=== PATIENT | female | born 1970 | race African-American/Black ===

== ENCOUNTER 2017-09-06 11:25 | Emergency (ER) | payer MEDICARE, MEDICAID ==
[~2017-09-06] VITALS: Ht 142.2 cm; Wt 57.1 kg
[~2017-09-06 11:25] MED LIST: ANTI-GAS40 MG/0.6 PO; BENADRYL25 MG PO; BENZTROPINE ME0.5 MG PO; CATAPRES; CENTRUM; CLARITIN5 MG/5 ML PO; CLONIDINE0.1; DEPO-PROVERA; DIAZEPAM 10 MG10 M1 RECTAL; DILANTIN-1125 MG/5 M PO; FIBERSOURCE HN250 ML PO; FORTICAL; FORTICAL1 SPRAY NASAL; HYDROCHLOROTH12.5 M1 PO; IBUPROFEN 400400 M1 PO; IBUPROFEN 400400 M2 PO; IMODIUM; KEPPRA 100100 MG/M1 PO; LOPERAMIDE2 MG PO; LORATIDINE 10 M10 M1; MEDROXYPROGESTERONE IM; MOM; MOM PO; MVI PO; MYLICON DR40 MG/0.1; OSCAL; PETROLEUM JELL368 GM; PRINIVIL20 MG; REGLAN 5 MG TAB5 M1 GT; REGLAN 5 MG TAB5 MG; ROBITUSSIN DM118 ML PO; TRANSDERM-SCO1 PATC1 TD; TRANSDERM-SCO1 PATC1 TOP; TUMS PER TUBE; TUSSIN CHE100 MG/5 M PO; TYLENOL; TYLENOL325 MG PO; VIMPAT10 MG/1 ML; VIMPAT10 MG/1 ML PO; VIT D PER TUBE; ZESTRIL20 MG PO
[2017-09-06 12:27] LABS: ABSOLUTE LYMPHOCYTES 1.8 thou/uL (0.8-5.3); ABSOLUTE MONOCYTES 0.5 thou/uL (0.0-1.2); ABSOLUTE NEUTROPHILS 6.9 thou/uL (1.6-8.1); BASOPHILS 0.5 %; HEMATOCRIT 36.8 % (37.0-47.0); HEMOGLOBIN 12.5 gm/dL (12.0-15.0); LYMPHOCYTES 19.9 %; MCH 31.4 pg (26.0-34.0); MCHC 34.1 g/dL (28.0-37.0); MCV 92.1 fL (80.0-100.0); MONOCYTES 5.6 %; NUCLEATED RBCS 0 /100WBC; PLATELET COUNT* 268 thou/uL (150-400); RDW-CV 12.8 % (10.5-14.5); WBC 9.3 thou/uL (4.0-11.0)
[2017-09-06 12:33] LABS: CALCIUM 9.7 mg/dL (8.5-10.1); CREATININE 0.9 mg/dL (0.6-1.3); POTASSIUM 3.6 mmol/L (3.5-5.1)
[2017-09-06 12:37] LABS: ALBUMIN 3.9 g/dL (3.4-5.0); TOTAL BILIRUBIN 0.2 mg/dL (<0.1-1.0); TOTAL PROTEIN 8.5 g/dL (6.4-8.2)
[2017-09-06] MEDS ORDERED: PROTONIX 20 MG20 M1 PER TUBE (14:14)
[2017-09-06] MEDS ORDERED: PEPCID20 MG PER TUBE (14:14)
[2017-09-06 14:37] VITALS: BP 119/74
== END 2017-09-06 14:41 | disposition home or self-care (01) ==
LOC: M.ERS 11:25
PROVIDERS: Physician Assistant
DX: R11.10 Vomiting, unspecified (principal); I10 Essential (primary) hypertension; K21.9 Gastro-esophageal reflux disease without esophagitis

== ENCOUNTER 2017-12-29 09:10 | Emergency (ER) | payer MEDICARE, MEDICAID ==
[~2017-12-29] VITALS: Ht 124.5 cm; Wt 44.9 kg
[~2017-12-29 09:10] MED LIST changes: +PEPCID20 MG PER TUBE; +PROTONIX 20 MG20 M1 PER TUBE
[2017-12-29 09:15] VITALS: BP 99/70
== END 2017-12-29 09:52 | disposition home or self-care (01) ==
LOC: M.ERS 09:10
DX: Z43.1 Encounter for attention to gastrostomy (principal); K21.9 Gastro-esophageal reflux disease without esophagitis; I10 Essential (primary) hypertension

== ENCOUNTER 2018-01-30 11:57 | Emergency (ER) | payer MEDICARE, MEDICAID ==
[~2018-01-30] VITALS: Ht 144.8 cm; Wt 48.5 kg
[2018-01-30] MEDS ORDERED: LEVOCETIRI2.5 MG/5 M PO (12:17)
[2018-01-30] MEDS ORDERED: MURINE EAR DROP15 ML OTIC (12:18)
[2018-01-30 13:48] VITALS: BP 120/72
== END 2018-01-30 13:49 | disposition home or self-care (01) ==
LOC: M.ERS 11:57
DX: Z43.1 Encounter for attention to gastrostomy (principal); K21.9 Gastro-esophageal reflux disease without esophagitis; I10 Essential (primary) hypertension; Z79.899 Other long term (current) drug therapy

== ENCOUNTER 2018-02-01 15:39 | Emergency (ER) | payer MEDICARE, MEDICAID ==
[~2018-02-01] VITALS: Ht 144.8 cm; Wt 52.2 kg
[~2018-02-01 15:39] MED LIST changes: +LEVOCETIRI2.5 MG/5 M PO; +MURINE EAR DROP15 ML OTIC
[2018-02-01] MEDS ORDERED: ALBUTEROL2.5 MG/0.5 INH (16:13)
[2018-02-01 16:37] VITALS: BP 132/95
== END 2018-02-01 16:51 | disposition home or self-care (01) ==
LOC: M.ERS 15:39
DX: J40 Bronchitis, not specified as acute or chronic (principal); K21.9 Gastro-esophageal reflux disease without esophagitis; I10 Essential (primary) hypertension

== ENCOUNTER 2018-06-09 10:02 | Emergency (ER) | payer MEDICARE, MEDICAID ==
[~2018-06-09] VITALS: Ht 152.4 cm; Wt 48.9 kg
--- NOTE | ~2018-06-09 | EKG ---
[place] [address] ELECTROCARDIOGRAM REPORT Name: BOBBY HERNANDES Room: [facility]#: [id number] Admission: 06/09/18 Attend Phys: Discharge: 06/09/18 Date of : 68 Report #: [id number] THIS REPORT FOR: //name// [facility] ED Test Date: 2018-06-10 Test Time: 19:32:02 Pat Name: BOBBY HERNANDES Department: Room: 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
[~2018-06-09 10:02] MED LIST changes: +ALBUTEROL2.5 MG/0.5 INH
[2018-06-09 12:39] VITALS: BP 118/65
== END 2018-06-09 12:40 | disposition home or self-care (01) ==
LOC: M.ERS 10:02
DX: K94.23 Gastrostomy malfunction (principal); K21.9 Gastro-esophageal reflux disease without esophagitis; I10 Essential (primary) hypertension

== ENCOUNTER 2018-06-10 17:45 | Inpatient (IN) | payer MEDICARE, MEDICAID ==
[~2018-06-10] VITALS: Ht 134.6 cm; Wt 48.5 kg
[~2018-06-10 17:45] MED LIST changes: +MILK OF MA2400 MG/10 PO; -MOM PO; -PETROLEUM JELL368 GM; +PETROLEUM JELL368 GM TOP; -PRINIVIL20 MG; +PRINIVIL20 MG PO; -REGLAN 5 MG TAB5 MG; +REGLAN 5 MG TAB5 MG PO
[2018-06-10 17:48] VITALS: BP 98/63
--- NOTE | 2018-06-10 18:05 | NUR ---
CONSENT OBTAINED FOR TREATMENT BY SHERRIE BEY.
[2018-06-10 19:17] LABS: URINE BILIRUBIN NEGATIVE (Negative); URINE BLOOD TRACE (Negative); URINE CLARITY CLEAR; URINE COLOR YELLOW; URINE GLUCOSE-RANDOM NEGATIVE (Negative); URINE KETONES NEGATIVE (Negative); URINE LEUKOCYTES-REFLEX NEGATIVE (Negative); URINE NITRITE-REFLEX NEGATIVE (Negative); URINE PROTEIN 1+ (Negative); URINE UROBILINOGEN 0.2 E.U./dl (0.2-1.0)
[2018-06-10 19:54] LABS: HEMATOCRIT 30.6 % (37.0-47.0); HEMOGLOBIN 10.4 gm/dL (12.0-15.0); MPV 6.7 fl. (7.2-11.1); RDW-CV 13.5 % (10.5-14.5)
[2018-06-10 19:56] LABS: ABSOLUTE LYMPHOCYTES 2.8 thou/uL (0.8-5.3); ABSOLUTE MONOCYTES 0.8 thou/uL (0.0-1.2); ABSOLUTE NEUTROPHILS 5.4 thou/uL (1.6-8.1); BASOPHILS 0.5 %; LYMPHOCYTES 31.3 %; MCH 31.1 pg (26.0-34.0); MCV 91.7 fL (80.0-100.0); MONOCYTES 8.7 %; NUCLEATED RBCS 0 /100WBC; PLATELET COUNT* 406 thou/uL (150-400); POLYS 59.5 %; RBC 3.34 mil/uL (4.20-5.00)
[2018-06-10 20:20] LABS: CALCIUM 11.9 mg/dL (8.5-10.1); CREATININE 1.2 mg/dL (0.6-1.3); POTASSIUM 3.3 mmol/L (3.5-5.1)
[2018-06-10 20:24] LABS: ALBUMIN 3.5 g/dL (3.4-5.0); TOTAL BILIRUBIN 0.3 mg/dL (<0.1-1.0); TOTAL PROTEIN 8.7 g/dL (6.4-8.2)
[2018-06-10 21:16] VITALS: BP 148/96
[2018-06-10 21:30] VITALS: BP 148/96
--- NOTE | 2018-06-11 05:21 | NUR ---
PATIENT ARRIVED ON UNIT AT APPROX 1930. POLICY CHANGE CLERK HERE TO ANSWER QUESTIONS AND SIGN CONSENTS. PATIENT IS NON-VERBAL. IV FLUIDS STARTED, INCLUDING ER ORDER OF WIDE OPEN SALINE THE ER ESTABLISHED IV ACCESS JUST PRIOR TO BRINGING PATIENT UP. ER PHYSICIAN ORDERED STRICT NPO, INCLUDING PEG TUBE THIS IS NOT FUNCTIONING PROPERLY AT THIS TIME. ABDOMINAL BINDER IN PLACE TO KEEP PATIET FROM PLAYING WITH TUBE. NO SKIN ISSUES NOTED. FRIED CATH IN PLACE AND DRAINING WELL. HOURLY ROUNDING AND PRODUCTION COORDINATOR COMLETED DOCUMENTED
[2018-06-11 07:45] VITALS: BP 108/65
--- NOTE | 2018-06-11 10:58 | NUR ---
SW called pt caregiver and spoke with Zahra to complete initial assessment, introduce self, and SW role. Zahra explained that pt has a guardian of the state and has [facility] [place]. [phone] (Zahra had already called to inform PA of pt admission to the hospital). Pt has a support CM named Anny, . Pt was in an ISL but is now in a prison and Zahra is with the caregiver agency who recently signed on to provide care for pt. Pt receives 24/ care, nurses check on pt hourly and reposition pt every 2 hrs. Pt has hx of siezures and hypertension. Pt responds well to calm voice but only with grunts or moans. Pt is NPO, tube feedings with abdominal binder to try to help hold in place. Pt has greg lift or needs 2 person assist to transfer, wc as is wc bound, hospital bed, briefs. Possible for Zahra to be able to provide pt ride home if needed; Zahra said she could be called at dc or whenever needed. [phone] or [phone]. SW to continue to follow to assist with safe dc planning.
[2018-06-11 11:30] VITALS: BP 105/64
--- NOTE | 2018-06-11 15:27 | NUR ---
Pt was brought down to PACU to assist Dr. Quezada with C-line placement. Consent was obtained by public administrators office. Consent given by Shree Choi RN with athority from Sybil Staley. Numbers to reach Shree are [phone] cell. After hours emergency # to pg Public commercial administrator [phone]. Courthouse #[phone], Sybil Staley [place] [phone]. Placement went well, 1st x-ray showed to adjust placement. 2nd xray after adjustment showed good placement and Dr. Quezada approved use of line. Called Michelle and report given. Patient taken over to CT for radiology exams. Shree requested call when patient is discharged.
[2018-06-11 15:42] VITALS: BP 110/66
--- NOTE | 2018-06-11 16:54 | NUR ---
VSS-AFEBRILE. LUMGS CLEAR/DIMINISHED IN BILATERAL BASES. NPO AND NO PEG USE UNTIL AFTER PEG IS REPAIRED ON 06/12/18. INCONTINENT OF TWO BM THIS SHIFT, FRIED DRAINING ADEQUATE AMOUNT OF CLEAR YE,LOW URINE TO DEPENDENT DRAINAGE. ORAL CARE AND TURNS EVERY TWO HOURS FOR COMFORT. PEG TUBE SITE CLEANSED AND DRESSING CHANGED.
--- NOTE | 2018-06-11 17:15 | NUR ---
ASSUMED CARE OF PATIENT AT THIS TIME. REPORT RECEIVED FROM KALEB ZAMBRANO. PATIENT RESTING IN BED. SITTER AT BEDSIDE. NO NEEDS AT THIS TIME. WILL CONTINUE TO MONITOR.
[2018-06-11 21:15] LABS: HEMATOCRIT 23.5 % (37.0-47.0); MCH 31.9 pg (26.0-34.0); MCHC 34.5 g/dL (28.0-37.0); MCV 92.5 fL (80.0-100.0); MPV 6.4 fl. (7.2-11.1); RBC 2.54 mil/uL (4.20-5.00); RDW-CV 13.4 % (10.5-14.5); WBC 9.6 thou/uL (4.0-11.0)
[2018-06-11 21:29] LABS: ANION GAP < 0 mmol/L (7-16); BUN 19 mg/dL (7-18); CHLORIDE 106 mmol/L (98-107); CO2 31 mmol/L (21-32); CREATININE 0.9 mg/dL (0.6-1.3); GLUCOSE 92 mg/dL (70-99); POTASSIUM 3.1 mmol/L (3.5-5.1); SODIUM 135 mmol/L (136-145)
[2018-06-11 21:31] LABS: HEMOGLOBIN 8.1 gm/dL (12.0-15.0)
[2018-06-11 21:32] LABS: CALCIUM 9.5 mg/dL (8.5-10.1)
[2018-06-12 00:30] VITALS: BP 105/48
--- NOTE | 2018-06-12 05:00 | NUR ---
PATIENT NONVERBAL AND NONRESPONSIVE. PT CONTRACTED BUT IS ABLE TO SOMEWHAT MOVE UPPER EXTREMITIES. PT WITH GAUZE OVER OPENING WHERE PEG TUBE WAS PULLED OUT. SKIN AROUND PEG TUBE OPENING WITH BREAKDOWN; BARRIER CREAM APPLIED. PT HAS TRIPLE LUMAN RT IJ; ANTIBIOTICS/FLUIDS INFUSING PER DR ORDER. PT WITH FRIED TO DEPENDENT DRAIN WITH YELLOW URINE. PT TURNED Q2H PER PROTOCAL. PT HAS SCD'S AND PROVO BOOTS IN PLACE. PT DOES NOT APPEAR TO BE IN PAIN. PT HAS 1:1 SITTER TO PREVENT PULLING AT LINES. FREQUENTLY USED ITEMS AND CALL LIGHT WITHIN REACH. WILL CONTINUE TO MONITOR.
[2018-06-12 06:16] LABS: HEMATOCRIT 22.7 % (37.0-47.0); HEMOGLOBIN 7.7 gm/dL (12.0-15.0); MCH 31.8 pg (26.0-34.0); MCHC 34.1 g/dL (28.0-37.0); MCV 93.2 fL (80.0-100.0); MPV 6.4 fl. (7.2-11.1); RBC 2.44 mil/uL (4.20-5.00); RDW-CV 13.3 % (10.5-14.5); WBC 8.8 thou/uL (4.0-11.0)
[2018-06-12 07:35] LABS: ALBUMIN 2.6 g/dL (3.4-5.0); CALCIUM 9.2 mg/dL (8.5-10.1); CREATININE 0.9 mg/dL (0.6-1.3); MAGNESIUM 1.8 mg/dL (1.8-2.4); POTASSIUM 3.3 mmol/L (3.5-5.1); TOTAL BILIRUBIN 0.2 mg/dL (<0.1-1.0)
[2018-06-12 08:05] VITALS: BP 104/52
[2018-06-12 09:35] VITALS: BP 190/51
--- NOTE | 2018-06-12 10:23 | CON ---
[address] [address] CONSULTATION Name: INDIRA HERNANDESLO Martha Room: [address] IN .R.#: [id number] Admission: 06/10/18 Attend Phys: Lillie Barron MD Discharge: Date of : 68 Report #: [id number] THIS REPORT FOR: //name// CC: [facility] physician/PCP Lillie Barron DATE OF SERVICE: 06/11/2018 ATTENDING PHYSICIAN: Dr. Barron. REASON FOR EVALUATION: Positive blood culture. HISTORY OF PRESENT ILLNESS: Chart reviewed, the patient examined. This is a 47-year-old woman with severe disability both physical as well as mental who essentially is in a nonresponsive state and receives enteral feedings per PEG tube. She does apparently at times pull at it and then it was felt to have been dislodged. She was transferred for evaluation and was confirmed. Noted there were some significant inflammation around the margins to suggest some leaking. As part of the evaluation, blood cultures were collected 1/2 with growth of gram-positive cocci at this point. She is unable to give any history. She did have a PICC line in place. GI to evaluate to see if it is a correctable problem or if it will return to function. She has been started empirically on ceftriaxone and vancomycin. ALLERGIES: None known. CURRENT MEDICATIONS: Include vancomycin, ceftriaxone, loratadine, cholecalciferol, hydrochlorothiazide, lisinopril, metoclopramide, benztropine, lacosamide, levetiracetam, albuterol, loperamide and guaifenesin. PAST MEDICAL HISTORY: As noted above, cerebral palsy, history of seizures, profound disability, history of reflux, hypertension and osteoporosis. SOCIAL HISTORY: Nonsmoker and no ethanol. FAMILY HISTORY: Noncontributory. REVIEW OF SYSTEMS: Not obtainable. PHYSICAL EXAMINATION: GENERAL: She has purposeful response to voice. She does repeatedly put the head of the right hand to her forehead, which apparently is one of her habitual actions. HEENT: Abnormal external ears. Microcephalic. Eyes are closed. VITAL SIGNS: Temperature 97.8, pulse 77, respirations 16 and blood pressure 110/66[place] [address] CONSULTATION Name: BOBBY HERNANDES Room: [address]#: [id number] Admission: 06/10/18 Attend Phys: Lillie Barron MD Discharge: Date of : 68 Report #: [id number] SKIN: Appears to be in generally good condition. HEART: Regular. I do not appreciate a murmur. LUNGS: Clear to auscultation. ABDOMEN: Mildly distended. The PEG tube has evidence of moderate inflammation at the margins. There is some exudate to distal lower extremities, has club foot. LABORATORY AND X-RAY DATA: Chest x-ray showed no pneumothorax or effusion. Low lung volumes. Blood culture 1 out of 2 with growth of gram-positive cocci, waiting ID susceptibility as required. Electrolytes: Sodium 136, potassium 3.3, chloride 97, bicarbonate is 34, BUN and creatinine 31 and 1.2, anion gap of 5, glucose of 104. LFTs unremarkable with exception of alkaline phosphatase elevated at 130. Calcium is 11.9. Albumin of 3.5. Total protein is 8.7. Lactic acid 1.8. CPK of 733. CBC: White count 9.0, H and H 10.4 and 38.6, platelets of 406. Urinalysis is unremarkable. ASSESSMENT: Gram-positive cocci isolated from single blood culture out of 2 sets were drawn. We will continue empiric therapy, certainly has risk factors. We will await ID and susceptibility testing. Certainly may have a secondary skin and soft tissue infection at the PEG site or more of a chemical dermatitis or perhaps a combination. We will await GI's recommendations. Continue wound care and protect with zinc paste in the interim for skin protection. We will monitor expectantly. <ELECTRONICALLY SIGNED> By: Scottie Stokes MD 06/12/18 1023 1623 [id number] Stokes MD /nt
--- NOTE | 2018-06-12 15:03 | NUR ---
WOUND CARE NOTE: CONSULT RECEIVED FOR CELLULITIS. PATIENT HAD A NEW G-TUBE PLACED TODAY. DIFFICULT TO ASSESS UNDERNEATH TUBE AT THIS TIME, BUT APPEARS TO HAVE SOME MACERATION. DID NOT VISUALIZE ANY REDNESS, BUT COULD HAVE BEEN OCCLUDED BY THE TUBE AND GAUZE DRESSING. ZINC BARRIER OINTMENT HAS BEEN BEING USED TO THE SITE, WOULD RECOMMEND CONTINUING IF NEEDED. MOST LIKELY THE ISSUE WILL RESOLVE NOW THAT GASTRIC CONTENTS WILL NOT BE DRAINING AND CAUSING IRRITATION TO THE SKIN. RECOMMEND CONTINUE USING Z-GUARD NOTIFY WOUND RN IF PROBLEM GETS WORSE. WILL SIGN OFF AT THIS TIME, PLEASE RECONSULT IF NEEDED.
--- NOTE | 2018-06-12 15:42 | EKG ---
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[employer]: : 1970 Requested By: Nikko Lheman Order Number: [id number] Jimena MD: Gorge Vogel Measurements Intervals [place] Rate: 73 P: 21 MD: 141 QRS: 84 QRSD: 86 T: 56 QT: 386 QTc: 426 Interpretive Statements Sinus rhythm Consider RVH or posterior infarct Baseline wander in lead(s) III Compared to ECG 06/10/2018 19:32:02 No significant changes Electronically Signed On 06-12-2018 15:41:57 LOOPING MACHINE OPERATOR by Gorge Vogel [email or web address] <ELECTRONICALLY SIGNED> By: Gorge Vogel MD, [facility] 06/12/18 1541 1029 1029 Gorge Vogel MD, [facility] /EPI
[2018-06-12 17:05] VITALS: BP 104/74
--- NOTE | 2018-06-12 19:49 | NUR ---
PATIENT RESTING IN BED. SITTER AT BEDSIDE. PATIENT IS NONVERBAL. PATIENT WENT FOR PEG TUBE PLACEMENT THIS MORNIGN WITHOUT INCIDENT. PEG TUBE FEEDING RESUMED AND WAS GIVEN. PATIENT VOMITED SHORTLY AFTER ADMINISTRATION, DR BLANKENSHIP NOTIFIED AND ORDERS RECIEVED. PATIENT HAS HAD 3 BOWEL MOVEMENTS TODAY. PATIENT HAS BEEN REPOSITIONED WHILE IN BED. PATIENT IS NPO. WILL CONTINUE TO MONITOR.
[2018-06-12 23:17] VITALS: BP 126/69
[2018-06-13 04:00] VITALS: BP 124/59
--- NOTE | 2018-06-13 05:19 | NUR ---
PT NONVERBAL, SLEEPING THIS SHIFT. OCC HITS HEAD WITH LEFT HAND. MEDS GIVEN AT HS THROUGHT G TUBE WITHOUT DIFFICULTY. ABD BINDER IN PLACE COVERING TUBE. NO EMESIS THIS SHIFT. HOB ELEVATED. SITTER AT BEDSIDE TO PROTECT LINES. R IJ SL, ABX GIVEN ORDERED. NO BM THIS SHIFT. PT TURNED AND REPOSITIONED Q2 HOURS AND PRN FOR SKIN CARE AND COMFORT. SCDS BLE. FRIED DRAINING YELLOW URINE. TO HAVE ABD XRAY TODAY AND AM LABS. NPO.
[2018-06-13 06:55] LABS: HEMOGLOBIN 7.2 gm/dL (12.0-15.0); MCH 32.1 pg (26.0-34.0); MCHC 34.1 g/dL (28.0-37.0); MCV 94.1 fL (80.0-100.0); MPV 7.4 fl. (7.2-11.1); RBC 2.23 mil/uL (4.20-5.00); RDW-CV 13.7 % (10.5-14.5); WBC 6.9 thou/uL (4.0-11.0)
[2018-06-13 07:09] LABS: ALBUMIN 2.5 g/dL (3.4-5.0); CALCIUM 8.6 mg/dL (8.5-10.1); CREATININE 0.8 mg/dL (0.6-1.3); MAGNESIUM 1.6 mg/dL (1.8-2.4); TOTAL BILIRUBIN 0.2 mg/dL (<0.1-1.0); TOTAL PROTEIN 6.2 g/dL (6.4-8.2)
[2018-06-13 07:10] LABS: POTASSIUM 2.8 mmol/L (3.5-5.1)
[2018-06-13 07:55] VITALS: BP 114/60
--- NOTE | 2018-06-13 12:53 | NUR ---
Nutrition: Currently on Jevity 1.5 @ 40mL/hr. Bolus feeds are desired. RECOMMEND JEVITY 1.5 1 CARTON QID, MEETING 100% OF NEEDS. WATER BOLUS: 90mL BEFORE AND AFTER EACH TF BOLUS. See RD Assessment form for details.
--- NOTE | 2018-06-13 13:14 | 2DMMODE ---
[place] [address] 2 D/M-MODE ECHOCARDIOGRAM Name: HERNANDESBOBBY Room: [address] IN [facility]#: [id number] Admission: 06/10/18 Attend Phys: Lillie Barron, Discharge: Date of : 68 Date of Service: 06/13/18 1314 Report #: [id number] THIS REPORT FOR: //name// APPROVED REPORT Study performed: 06/13/2018 10:07:25 EXAM: Comprehensive 2D, Doppler, and color-flow Echocardiogram Patient Location: In-Patient Room #: [facility] Status: routine BSA: 1.31 HR: 61 bpm BP: 114/60 mmHg Rhythm: NSR Other Information Study Quality: Good Indications bacteremia 2D Dimensions IVSd: 8.16 (7-11mm) LVOT Diam: 16.54 (18-24mm) LVDd: 29.24 mm PWd: 7.38 (7-11mm) Ascending Ao: 21.97 (22-36mm) LVDs: 19.66 (25-40mm) Aortic Root: 25.33 mm Volumes Left Atrial Volume (Systole) LA ESV Index: 20.00 mL/m2 Aortic Valve AoV Peak Jignesh.: 1.20 m/s AO Peak Gr.: 5.74 mmHg LVOT Max P.44 mmHg AO Mean Gr.: 3.09 mmHg LVOT Mean P.90 mmHg LVOT Max V: 1.05 m/s AO V2 VTI: 25.17 cm LVOT Mean V: 0.62 m/s TAB (VTI): 2.03 cm2 LVOT V1 VTI: 23.78 cm Mitral Valve E/A Ratio: 2.25 MV Decel. Time: 149.34 ms MV E Max Jignesh.: 1.20 m/[place] [address] 2 D/M-MODE ECHOCARDIOGRAM Name: HERNANDESBOBBY Room: [address] IN ..#: [id number] Admission: 06/10/18 Attend Phys: Lillie Barron, Discharge: Date of : 68 Date of Service: 06/13/18 1314 Report #: [id number] MV PHT: 43.31 ms MVA (PHT): 5.08 cm2 TDI E/Lateral E': 10.00 E/Medial E': 10.00 Medial E' Jignesh.: 0.12 m/s Lateral E' Jignesh.: 0.12 m/s Pulmonary Valve PV Peak Jignesh.: 0.76 m/s PV Peak Gr.: 2.30 mmHg Tricuspid Valve RAP Estimate: 5.00 mmHg TR Peak Gr.: 25.98 mmHg RVSP: 31.00 mmHg PA Pressure: 31.00 mmHg Left Ventricle The left ventricle is normal size. There is normal LV segmental wall motion. There is normal left ventricular wall thickness. Left ventricular systolic function is normal. The left ventricular ejection fraction is within the normal range. LVEF is 60-65%. The left ventricular diastolic function is normal. Right Ventricle The right ventricle is normal size. The right ventricular systolic function is normal. Atria The left atrium size is normal. The right atrium size is normal. Aortic Valve The aortic valve is normal in structure. No aortic regurgitation is present. There is no aortic valvular stenosis. Mitral Valve The mitral valve is normal in structure. Mild mitral regurgitation. No evidence of mitral valve stenosis. Tricuspid Valve The tricuspid valve is normal in structure. Mild tricuspid regurgitation. Mild pulmonary hypertension. Pulmonic Valve The pulmonary valve is normal in structure. Trace pulmonic [place] [address] 2 D/M-MODE ECHOCARDIOGRAM Name: BOBBY HERNANDES Room: [address] IN [facility]#: [id number] Admission: 06/10/18 Attend Phys: Lillie Barron, Discharge: Date of : 68 Date of Service: 06/13/18 1314 Report #: [id number] Great Vessels The aortic root is normal in size. IVC is not well visualized. Pericardium There is no pericardial effusion. <Conclusion> LVEF is 60-65%. There is normal LV segmental wall motion. There is no aortic valvular stenosis. No aortic regurgitation is present. Mild mitral regurgitation. Mild tricuspid regurgitation. Mild pulmonary hypertension. <ELECTRONICALLY SIGNED> By: Javon Cote MD, FACC 06/13/18 1314 1314 1314 Javon Cote MD, FACC /INF
--- NOTE | 2018-06-13 17:57 | NUR ---
PATIENT STARTED PEG TUBE FEEDINGS VIA CONTINUOUS INFUSION, TOLERATING A RATE OF 20ML/HR. PATIENT DID NOT VOMIT TODAY. CURRENTLY RESTING IN BED, SIDE RAILS UP X4, SITTER IN THE ROOM, WILL CONTINUE TO MONITOR.
--- NOTE | 2018-06-13 18:02 | NUR ---
REVIEWED AND AGREE WITH CHARTING BY STACY ALMARAZ.
[2018-06-13 21:37] VITALS: BP 108/67
[2018-06-14 04:13] LABS: HEMOGLOBIN 7.4 gm/dL (12.0-15.0); MCH 31.9 pg (26.0-34.0); MCHC 33.6 g/dL (28.0-37.0); MCV 94.7 fL (80.0-100.0); RBC 2.32 mil/uL (4.20-5.00); RDW-CV 13.7 % (10.5-14.5); WBC 7.6 thou/uL (4.0-11.0)
[2018-06-14 04:29] LABS: ALBUMIN 2.3 g/dL (3.4-5.0); CALCIUM 8.4 mg/dL (8.5-10.1); MAGNESIUM 2.3 mg/dL (1.8-2.4); TOTAL BILIRUBIN 0.2 mg/dL (<0.1-1.0)
[2018-06-14 04:50] LABS: POTASSIUM 3.9 mmol/L (3.5-5.1)
--- NOTE | 2018-06-14 08:05 | NUR ---
PT IS ABLE TO COMMUNICATE HER NEEDS TO STAFF WITH SIGNIFICANT DIFFICULTY; SHE IS NON-VERBAL AND HAS COGNITIVE DELAY. SHE DOES SEEM TO BECOME MORE AGGITATED WHEN UNCOMFORTABLE OR IN PAIN. REPOSITIONING AND MEDICATIONS HAVE BEEN ADEQUATE FOR CONTROLLING HER PAIN UP TO THIS TIME. PEG TUBE IS PATENT. FRIED IS ALSO PATENT. NPO MAINTAINED. 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 HOB AT 30 DEGREES+ WHILE TUBE FEEDING IS RUNNING.
[2018-06-14 09:45] VITALS: BP 118/78
[2018-06-14 16:39] VITALS: BP 101/65
--- NOTE | 2018-06-14 17:49 | NUR ---
ASSUMED CARE OF PT AT 0700. PT HAS SITTER PRESENT 24/ D/T PT PULLING ON IJ THAT WAS PLACED. VS STABLE AND WNL FOR PT, FARIHA IS PATENT AND DRIANING. IJ TRIPLE LUMEN EACH PORT FLUSHED. PT CALM THROUGH THIS SHIFT, Q2 TURNS MAINTAINED. HOURLY ROUNDING MAINTAINED. WILL CONT TO MONITOR.
[2018-06-14 21:45] VITALS: BP 124/81
--- NOTE | 2018-06-14 22:50 | CON ---
[facility] [address] [place] [address] CONSULTATION Name: BOBBY HERNANDES Room: [address] IN .R.#: [id number] Admission: 06/10/18 Attend Phys: Lillie Barron MD Discharge: Date of : 68 Report #: [id number] THIS REPORT FOR: //name// CC: [facility] physician/PCP Lillie Barron DATE OF SERVICE: 06/11/2018 REFERRING PHYSICIAN: Lillie Barron MD REASON FOR CONSULTATION: Problems with her gastrostomy tube. IMPRESSION: 1. Issues with PEG tube leakage secondary to poor fitting of the same. 2. Behavioral disorder with associated cognitive dysfunction making it difficult for the patient not to keep pulling out her feeding tube. 3. 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 4. History of seizure disorder. RECOMMENDATIONS: 1. I think that the patient would benefit from having a different feeding tube placed at this time. The balloon replacement tube does not appear to be fitting all that well and for this reason I would like to proceed with upper endoscopy with replacement of her current existing balloon replacement tube with a 24-Lithuanian tube that has a bumper on the inside to keep it up closer to the skin. 2. We can also size the length of her to tube to determine whether or not she would benefit from a low profile replacement balloon tube. This would allow her to not be able to pull on tubing assuming that she only gets bolus feedings. If; however, she gets continuous feedings at the senior living, this will not be an option because there would be no better option that what she already has. We will proceed with upper endoscopy and replacement of her balloon replacement tube with a new tube tomorrow and this will be done with the help of the public test center administrator. HISTORY OF PRESENT ILLNESS: The patient is a 47-year-old -Italian female well known to me from over 10 years ago when she has had issues with pulling out her tube. She has had multiple ER visits for problems related to PEG tube dysfunction. In fact she pulls her tube out on a regular basis. It has been replaced multiple times with balloon replacement tubes and now has had some problem with leakage from the same. Fortunately, she has not had any evidence for infections related to the same nor has she had any problem with breakdown of her skin. She is nonverbal and noncommunicative. She was sent from the senior living staff because of problems related to the same. When I saw her over 10 years ago, I recommended [place] [address] CONSULTATION Name: BOBBY HERNANDES Martha Room: [address] IN [facility].#: [id number] Admission: 06/10/18 Attend Phys: Lillie Barron MD Discharge: Date of : 68 Report #: [id number] a low profile balloon tube, but I do not if that ever happened. ALLERGIES: None. MEDICATIONS: At the nursing home include Fibersource HN, but it is unclear how often she takes it and how much she takes on a daily basis. Cogentin, Prinivil, Keppra, Reglan, Tylenol, hydrochlorothiazide, calcium carbonate, Vimpat and a number of different p.r.n. medications. PAST MEDICAL HISTORY: Remarkable for cognitive dysfunction. She is nonverbal. She has had history of seizure disorder, problems with recurrent reflux, chronic constipation and hypertension. SOCIAL HISTORY: The patient does not smoke or drink. FAMILY HISTORY: Not known. PHYSICAL EXAMINATION: GENERAL: Revealed a 47-year-old -Italian female who is noncommunicative. CARDIOPULMONARY: Revealed a regular rate and rhythm. LUNGS: Clear. ABDOMEN: Soft. Her gastrostomy tube is noted in the left upper quadrant and is able to be flushed very easily. There does not appear to be any discernible infection at the level of the PEG tube site. CT scan was reviewed and revealed that the balloon has probably migrated into the proximal duodenal bulb and is pulling. LABORATORY DATA: Her laboratory tests from the 5th revealed a white count of 9.0, hemoglobin 10.4, platelet count 406,000, MCV is 91.7 and RDW 13.5. Sodium is 136, potassium 3.3, chloride 97 and bicarbonate is 34. Her BUN 31 and creatinine 1.2. Her total bilirubin 0.3, alkaline phosphatase 130, AST is 28 and ALT 31. Her albumin is 3.5, but it is probably falsely elevated secondary to her dehydration. DISCUSSION: At the present time, the patient appears to be candidate to undergo endoscopic evaluation and PEG tube replacement. We will proceed with this tomorrow and make further recommendations thereafter. <ELECTRONICALLY SIGNED> By: El Elam DO 06/14/18 2250 1625 [id number] Elam DO /nt
[2018-06-15 04:47] LABS: HEMATOCRIT 22.9 % (37.0-47.0); HEMOGLOBIN 7.8 gm/dL (12.0-15.0); MCH 32.2 pg (26.0-34.0); MCHC 33.9 g/dL (28.0-37.0); MPV 8.1 fl. (7.2-11.1); RBC 2.41 mil/uL (4.20-5.00); RDW-CV 13.9 % (10.5-14.5); WBC 8.5 thou/uL (4.0-11.0)
[2018-06-15 05:10] LABS: CALCIUM 8.9 mg/dL (8.5-10.1); CREATININE 0.8 mg/dL (0.6-1.3); POTASSIUM 3.7 mmol/L (3.5-5.1)
--- NOTE | 2018-06-15 05:53 | NUR ---
PATIENT HAS SLEPT WELL THROUGHOUT THE NIGHT, AND HAS BEEN CALM MOST OF THE NIGHT. VSS ON RA. SITTER IN ROOM DURING THE NIGHT WITH PATIENT AND TURNED PATIENT EVERY 2HRS AND PRN. RIGHT TRIPLE LUMEN IJ IN PLACE AND BLOOD DRAWN FOR LABS AND FLUSHED. FRIED TO DEPENDENT DRAINAGE WITH YELLOW URINE OUTPUT. PEG TUBE INTACT AND MEDICATIONS GIVEN VIA TUBE AND FLUSHES WELL. TUBE FEEDING RUNNING AT 40ML/HR CONTINUOUSLY. PATIENT TOLERATING WELL. FALL PRECAUTIONS IN PLACE AND HOURLY ROUNDS MADE. WILL CONTINUE WITH PLAN OF CARE AND NURSING TO MONITOR.
[2018-06-15 16:00] VITALS: BP 101/59
--- NOTE | 2018-06-15 17:23 | NUR ---
PATIENT IS UNABLE TO COMMUNICATE HER NEEDS SHE IS NON VERBAL. SITTER AT BEDSIDE THIS AM. DISCONTINUED SITTER AT 1130. CENTRAL LINE DC'D THIS AM. BOLUS FEEDINGS DONE AT 1000 AND 1600 WITH 90ML WATER BOLUS ADMINISTERED PRIOR TO AND AFTER FEEDINGS. MEDICATION ADMINISTERED THROUGH PEG TUBE. M8YONPS COMPLETED THROUGHOUT SHIFT. VSS ON ROOM AIR. HOURLY ROUNDS HAVE BEEN MAINTAINED THORUGHOUT SHIFT. CALL LIGHT IS WITHIN REACH. NURSING WILL CONTINUE TO MONITOR.
[2018-06-15 21:45] VITALS: BP 106/73
[2018-06-16] VITALS: BP 102/61
[2018-06-16 04:00] VITALS: BP 105/65
--- NOTE | 2018-06-16 05:20 | NUR ---
PATIENT HAS SLEPT WELL THROUGHOUT THE NIGHT. VSS ON RA. BOLUS TUBE FEEDING S GIVEN EVERY 6HRS AND PATIENT TOLERATING WELL. MEDICATIONS GIVEN ORDERED AND CHARTED. FRIED TO DEPENDENT DRAINAGE WITH YELLOW URINE OUTPUT. PATIENT TURNED EVERY 2HRS AND PRN. FALL PRECAUTIONS IN PLACE AND HOURLY ROUNDS MADE. WILL CONTINUE WITH PLAN OF CARE AND NURSING TO MONITOR.
[2018-06-16 08:15] VITALS: BP 105/55
[2018-06-16 08:33] LABS: URINE BILIRUBIN NEGATIVE (Negative); URINE BLOOD NEGATIVE (Negative); URINE CLARITY CLEAR; URINE COLOR YELLOW; URINE GLUCOSE-RANDOM TRACE (Negative); URINE KETONES NEGATIVE (Negative); URINE LEUKOCYTES NEGATIVE (Negative); URINE NITRITE NEGATIVE (Negative); URINE PROTEIN NEGATIVE (Negative); URINE SPECIFIC GRAVITY 1.015 (1.005-1.030); URINE UROBILINOGEN 0.2 E.U./dl (0.2-1.0)
[2018-06-16 10:32] LABS: INFLUENZA A ANTIGEN None Detected (None Detect); INFLUENZA B ANTIGEN None Detected (None Detect)
[2018-06-16 15:39] VITALS: BP 94/57
--- NOTE | 2018-06-16 16:54 | NUR ---
PATIENT REMAINED SLEEPING AND MOSTLY NON RESPONSIVE THROUGHOUT SHIFT. MEDS GIVEN CRUSHED THROUGH PEG TUBE. FEED PATIENT AT 10 AT 1600 THROUGH PEG. PEG TUBE FLUSHED WITHOUT RESISTANCE, TURNED PATIENT Q.2. ABDOMINAL BINDER IN PLACE. FLU SWAB SENT TO LAB. COMPLETED HOURLY ROUNDING. CALL LIGHT WITHIN REACH, WILL CONTINUE TO MONITOR.
[2018-06-16 22:15] VITALS: BP 104/65
[2018-06-17 05:34] LABS: HEMATOCRIT 26.8 % (37.0-47.0); MCHC 33.6 g/dL (28.0-37.0); MCV 95.3 fL (80.0-100.0); MPV 7.2 fl. (7.2-11.1); RBC 2.82 mil/uL (4.20-5.00); RDW-CV 13.8 % (10.5-14.5); WBC 6.5 thou/uL (4.0-11.0)
[2018-06-17 05:44] LABS: CALCIUM 9.1 mg/dL (8.5-10.1); CREATININE 0.8 mg/dL (0.6-1.3); MAGNESIUM 2.3 mg/dL (1.8-2.4); POTASSIUM 3.6 mmol/L (3.5-5.1)
--- NOTE | 2018-06-17 07:05 | NUR ---
PATIENT HAS SLEPT WELL THROUGHOUT THE NIGHT. VSS ON RA. PATIENT NON VERBAL. TURNED EVERY 2HRS. PEG TUBE IN PLACE AND INTACT AND BINDER IN PLACE. TUBE FEEDINGS ADMINISTERED AND TUBE FLUSHED. FALL PRECAUTIONS IN PLACE AND HOURLY ROUNDS MADE. WILL CONTINUE WITH PLAN OF CARE AND NURSING TO MONITOR.
[2018-06-17 09:20] VITALS: BP 138/87
[2018-06-17] MEDS ORDERED: NIFEREX TABLET1 EACH PO (10:27)
[2018-06-17 10:31] VITALS: BP 138/87
[2018-06-17] MEDS ORDERED: CALCITONIN-SAL3.7 ML NASAL (12:25)
[2018-06-17] MEDS ORDERED: SCOPOLAMINE1 EACH TRANSDERM (12:28)
--- NOTE | 2018-06-17 13:28 | NUR ---
PT.HAS DISCHARGE ORDERS TO RETURN BACK TO PRISON. PT.IS IN TRANSITION TO ANOTHER PRISON,SO IS STAYING AT A RESPITE PRISON CALLED [facility] IN [place]. SPOKE INITIALLY WITH PARVEZ. SHE GAVE ME NUMBER OF JOSS IBANEZ/RESEDENTIAL FIRE PREVENTION INSPECTOR AT [facility]. [phone]. HE SAID PT.COULD RETURN TODAY. HE DID NOT KNOW ANY MEDICAL HX ON PT.REGARDING IF SHE EVER HAD A BUTTON PEG. HAD INQUIRED ABOUT THIS. HE SAID PT.WILL RETURN FOR F/U 06/19 WITH GI. FAXED DISCHARGE ORDERS TO HIM AT [phone]. HE CAME IN TO SIGN DISCHARGE PAPERS AND GET CHART COPY. HE REQUESTED AMBULANCE TRANSPORT FOR 1330. CM CALLED AND ARRANGED AMBULANCE TRANSPORT. ALSO CALLED AND NOTIFIED [facility] PA/GUARDIAN, OF HER DISCHARGE.
--- NOTE | 2018-06-17 14:14 | NUR ---
PT REMAINED ALERT. PT LEFT WITH AMBULANCE PERSONEL TO HOME FACILITY. HEAD OF MARKETING ADOMETRY TAKING CARE OF PT CAME AND SIGNED OFF ON DISCHARGE INSTRUCTIONS AND TOOK DISCHARGE PACKET. FALL RISK PRECAUTIONS IN PLACE. HOURLY ROUNDING COMPLETED. PT FRIED REMOVED PRIOR TO LEAVING.
[2018-06-17 14:21] VITALS: BP 138/87
== END 2018-06-17 14:21 | DRG 919 ==
LOC: M.ERS 17:45 → M.TBA-ER 18:30 → M.3W 18:30 → M.ORTHSURG 06-13 16:52
PROVIDERS: Internal Medicine; Nurse Practitioner Family; ADMIT Internal Medicine
PROC: 0D20XUZ Change Feeding Device in Upper Intestinal Tract, External Approach (ICD-10-PCS; principal; 2018-06-12)
DX: T85.528A Displacement of other gastrointestinal prosthetic devices, implants and grafts, initial encounter (principal); A41.1 Sepsis due to other specified staphylococcus; K22.10 Ulcer of esophagus without bleeding; Q43.3 Congenital malformations of intestinal fixation; L03.311 Cellulitis of abdominal wall; E44.1 Mild protein-calorie malnutrition; T85.598A Other mechanical complication of other gastrointestinal prosthetic devices, implants and grafts, initial encounter; H91.90 Unspecified hearing loss, unspecified ear; Q02 Microcephaly; I10 Essential (primary) hypertension; D64.9 Anemia, unspecified; K21.0 Gastro-esophageal reflux disease with esophagitis; K22.2 Esophageal obstruction; G40.909 Epilepsy, unspecified, not intractable, without status epilepticus; G80.9 Cerebral palsy, unspecified; G31.84 Mild cognitive impairment of uncertain or unknown etiology; M81.0 Age-related osteoporosis without current pathological fracture; R62.50 Unspecified lack of expected normal physiological development in childhood; K59.00 Constipation, unspecified; Y83.3 Surgical operation with formation of external stoma as the cause of abnormal reaction of the patient, or of later complication, without mention of misadventure at the time of the procedure; Z68.26 Body mass index [BMI] 26.0-26.9, adult; Y92.89 Other specified places as the place of occurrence of the external cause; Z79.899 Other long term (current) drug therapy; Z23 Encounter for immunization